=== PATIENT | female | born 1990 ===

== ENCOUNTER 2018-04-12 19:32 | Emergency (ER) | payer OTHER ==
[2018-04-12 19:56] VITALS: PULSE 80
[2018-04-12 21:00] LABS: PH,URINE 8.5 (4.7-8.0); URINE APPEARANCE CLEAR (CLEAR); URINE BILIRUBIN NEGATIVE (NEGATIVE); URINE BLOOD NEGATIVE (NEGATIVE); URINE COLOR YELLOW (YELLOW); URINE GLUCOSE (UA) NEGATIVE (NEGATIVE); URINE LEUKOCYTE ESTERASE NEGATIVE Leu/uL (NEGATIVE); URINE PROTEIN NEGATIVE mg/dL (<30 mg/dL); URINE UROBILINOGEN 0.2 E.U./dL (<1 E.U./dL)
--- NOTE | 2018-04-12 21:36 | ED PDOC ---
Arrival/HPI - General Chief Complaint: Female Genitourinary Time Seen by Provider: 04/12/18 20:17 Historian: Patient - History of Present Illness Narrative History of Present Illness (Text): 04/12/18 20: 20 27 year old female, with no significant past medical history, presents to the emergency department complaining of vaginal discharge with fowl odor for the past 3 days. Patient used monistat vaginal suppository with no relief. Patient also reports right sided pelvic pain. Patient denies any fever, chills, chest pain, shortness of breath, nausea, vomiting, diarrhea, back pain, neck pain, headache, dizziness, or any other complaints. PMD: Dr. Randolph Time/Duration: Other (3 days) Symptom Onset: Gradual Symptom Course: Unchanged Activities at Onset: Light Context: Home Past Medical History - Provider Review Nursing Documentation Reviewed: Yes - Cardiac Hx Cardiac Disorders: No - Pulmonary Hx Respiratory Disorders: No - Neurological Hx Neurological Disorder: No - HEENT Hx HEENT Disorder: No - Renal Hx Renal Disorder: No - Endocrine/Metabolic Hx Endocrine Disorders: No - Hematological/Oncological Hx Blood Disorders: No - Integumentary Hx Dermatological Disorder: No - Musculoskeletal/Rheumatological Hx Musculoskeletal Disorders: No - Gastrointestinal Hx Gastrointestinal Disorders: No - Genitourinary/Gynecological Hx Genitourinary Disorders: Yes Other/Comment: VAGINAL YEAST INFECTION - Psychiatric Hx Psychophysiologic Disorder: No Hx Substance Use: No - Surgical History Other/Comment: R FOOT Family/Social History - Physician Review Nursing Documentation Reviewed: Yes Family/Social History: No Known Family HX Smoking Status: Never Smoked Hx Alcohol Use: Yes Frequency of alcohol use: Socially Hx Substance Use: No Allergies/Home Meds Allergies/Adverse Reactions: Allergies No Known Allergies Allergy (Verified 04/12/18 19:49) Home Medications: Home Meds Medication Instructions Recorded Confirmed Miconazole Nitrate [Monistat 1] 1 applic .ROUTE PRN PRN 04/12/18 04/12/18 Review of Systems - Physician Review All systems were reviewed & negative as marked: Yes - Review of Systems Constitutional: absent: Fevers, Other (Chills) Respiratory: absent: SOB Cardiovascular: absent: Chest Pain Gastrointestinal: absent: Diarrhea, Nausea, Vomiting Genitourinary Female: Vaginal Discharge (with odor). absent: Dysuria, Hematuria Musculoskeletal: absent: Back Pain, Neck Pain Neurological: absent: Headache, Dizziness Physical Exam Vital Signs Reviewed: Yes Vital Signs Temp Pulse Resp BP Pulse Ox 04/12/18 19:51 99.3 F 80 16 114/74 98 Temperature: Afebrile Blood Pressure: Normal Pulse: Regular Respiratory Rate: Normal Appearance: Positive for: Well-Appearing, Non-Toxic, Comfortable Pain Distress: None Mental Status: Positive for: Alert and Oriented X 3 - Systems Exam Head: Present: Atraumatic, Normocephalic Pupils: Present: PERRL Extroacular Muscles: Present: EOMI Conjunctiva: Present: Normal Mouth: Present: Moist Mucous Membranes Neck: Present: Normal Range of Motion Respiratory/Chest: Present: Clear to Auscultation, Good Air Exchange. No: Respiratory Distress, Accessory Muscle Use Cardiovascular: Present: Regular Rate and Rhythm, Normal S1, S2. No: Murmurs Abdomen: No: Tenderness, Distention, Peritoneal Signs, McBurney's Point Tender Genitourinary/Pelvic Exam: Present: Other (showed monistat suppository ) Back: Present: Normal Inspection Upper Extremity: Present: Normal Inspection. No: Cyanosis, Edema Lower Extremity: Present: Normal Inspection. No: Edema Neurological: Present: GCS=15, CN II-XII Intact, Speech Normal Skin: Present: Warm, Dry, Normal Color. No: Rashes Psychiatric: Present: Alert, Oriented x 3, Normal Insight, Normal Concentration Medical Decision Making ED Course and Treatment: 04/12/18 21:43 Impression: 27 year old female presents complaining of vaginal discharge with odor for the past 3 days associated with right side pelvic pain. PE shows negative McBurney' s Point Tenderness. Plan: --Chlamydia/GC RNA, TMA -- Pelvic Exam Setup -- Urine -- Transvaginal US -- Reassess and disposition Progress Notes: 04/12/18 22:26 Patient states she does not want to wait to have the Transvaginal US and wants to go home. Leaving Against Medical Advice (AMA): The patient is choosing to leave against medical advice. I have personally explained to the patient that choosing to do so may result in permanent bodily harm or . I have discussed at great length that without further evaluation and monitoring there may be unforeseen circumstances and/or deterioration causing permanent bodily harm or as a result of their choice. The patient is alert, oriented, and shows the mental capacity to make clear decisions regarding the patients health care at this time. The patient continues to wish to leave against medical advice. In light of the patients decision to leave against medical advice, follow-up has been arranged and the patient is aware of the importance to following up as instructed. The patient has been advised that they should return to the emergency room immediately if they change their mind at any time, or if their condition begins to change or worsen in any way. - Lab Interpretations Lab Results: Lab Results 04/12/18 20:54: Urine Color Yellow, Urine Appearance Clear, Urine pH 8.5, Ur Specific [place] 1.020, Urine Protein Negative, Urine Glucose (UA) Negative, Urine Ketones Negative, Urine Blood Negative, Urine Nitrate Negative, Urine Bilirubin Negative, Urine Urobilinogen 0.2, Ur Leukocyte Esterase Negative I have reviewed the lab results: Yes - RAD Interpretation Radiology Orders: 04/12/18 21:08 TRANSVAGINAL [US] Stat - Scribe Statement The provider has reviewed the documentation as recorded by the Hanyibe Radha Reynaga Provider Scribe Attestation: All medical record entries made by the Scribe were at my direction and personally dictated by me. I have reviewed the chart and agree that the record accurately reflects my personal performance of the history, physical exam, medical decision making, and the department course for this patient. I have also personally directed, reviewed, and agree with the discharge instructions and disposition. Disposition/Present on Arrival - Present on Arrival Any Indicators Present on Arrival: No History of DVT/PE: No History of Uncontrolled Diabetes: No Urinary Catheter: No History of Decub. Ulcer: No History Surgical Site Infection Following: None - Disposition Have Diagnosis and Disposition been Completed?: Yes Diagnosis: Vaginal discharge Disposition: HOME/ ROUTINE Disposition Time: 22:22 Patient Plan: Discharge Patient Problems: Current Active Problems Problem Status Onset Vaginal discharge Acute Condition: GOOD Discharge Instructions (ExitCare): Vaginal Discharge in Adults Additional Instructions: Jennifer - Sorry you don't want to wait for the us and all of the test results. Just see your doctor tomorrow. Best- Dr. Raudel Dumont Referrals: Anjum Randolph MD [Primary Care Provider] - Follow up with primary Forms: [employer] (K[place]z)
[2018-04-12 23:28] VITALS: BP 118/74; TEMP 98.9; O2SAT 99
[2018-04-12 23:35] VITALS: RESP 17
== END 2018-04-12 23:02 | disposition home or self-care (01) ==
LOC: ED 19:32
DX: N89.8 Other specified noninflammatory disorders of vagina (principal)